=== PATIENT | female | born 1985 | race Caucasian/White ===

== ENCOUNTER → 2019-03-03 15:54 | Outpatient (CLI) | payer OTHER, SELFPAY ==
--- NOTE | 2019-03-03 | TONS_PTH ---
PATIENT: ERICA CONTRERAS LOC: [facility] U#:[id number] AGE/SX: 39/F ROOM: RE03/03/[address]: Dustin Amezquita MD : 1985 BED: DIS: SPEC #: [id number] RECD: 03/03/19 15:45 STATUS: SUSAN MAJO #: [id number] STEPHIE: 03/03/19 00:[address]: Dustin Amezquita DEPT: SURGICAL PATHOLOGY RECD BY: Katharine Cooley ENTERED: 03/06/19 11:17 SP TYPE: TONSILS OTHR DR: Out of Town Doctor Tissues: Tonsil, NOS Procedures: PAS Fungus (control) Special Stain Group I Surgery Specimen Level IV HEADER OPERATION: Excisional biopsy PRE-OP DIAGNOSIS: Right tonsil fossa, mucosal lesion (papilloma) TISSUE SUBMITTED: Right tonsil fossa, mucosal lesion MICROSCOPIC DIAGNOSIS Right tonsil fossa, biopsy: Polypoid benign lymphoid tissue. Focal mucosal ulceration with associated acute and chronic inflammation. Negative for fungal organisms. See comment. AM:alex 03/07/19 COMMENT PASF stain with matched control was used in the evaluation of this case. Immunohistochemistry ([id number]) supports the above diagnosis. Case has been reviewed in consultation with Dr. Osorio who concurs with the above diagnosis. IDC:[email or web address] MICROSCOPIC DESCRIPTION Slides are reviewed. GROSS DESCRIPTION Received in fixative is one container labeled with the patient's name and designated right tonsil. The specimen consists of a polypoid piece of cee mucosal tissue measuring 0.5 x 0.3 x 0.3 cm. The specimen is totally submitted in one cassette. / FRANCISCO:alex 03/06/19 TC:2 CPT: 79032, 95270
--- NOTE | 2019-03-03 | IMM_PTH ---
PATIENT: ERICA CONTRERAS LOC: [facility] U#:[id number] AGE/SX: 39/F ROOM: RE03/03/[address]: Dustin Amezquita MD : 1985 BED: DIS: SPEC #: [id number] RECD: 03/07/19 14:43 STATUS: SUSAN REQ #: [id number] STEPHIE: 03/03/19 00:[address]: Dustin Amezquita DEPT: IMMUNOHISTOCHEMISTRY RECD BY: Mary Perez ENTERED: 03/07/19 14:44 SP TYPE: IMMUNO OTHR DR: Out of Town Doctor Tissues: Tonsil, NOS Procedures: CD20 (add) CD3 (add) CD45 (add) CD5 (add) CD79A (add) Pankeratin (initial) Comments: @ Specimen number changed from [id number] to [id number] @ on 03/07/19 at 1509 by [facility]. PHYSICIAN & INSTITUTION [address] [address] SPECIMEN INFORMATION: Tissue Source: Right tonsil fossa Clinical Info: Right tonsil fossa mucosal lesion (papilloma) Specimen Number: [id number] CPT code: 34255, 97498 x5 METHODOLOGY: Deparaffinized sections of prefer/formalin-fixed tissue or PAP/DQ stained slides are incubated with monoclonal/polyclonal antibodies/oligonucleotide probes. Localization is made via biotin free immunoperoxidase method. Appropriate controls are performed and reacted as expected. Results on target cell population are indicated in the following table: RESULTS: ANTIBODY / CLONE RESULT AE1-3 (AE1/AE3/PCK26) negative CD3 (PS1) positive CD5 (SP10) positive CD20 (L26) positive CD45 (RP2/18) positive CD79a (11E3) positive These tests were developed and their performance characteristics determined by [facility]. They may not have been cleared or approved by the [place]. Food and Drug Administration. The FDA has determined that such clearance or approval is not necessary. The above immunohistochemical/dualISH markers are ordered and reviewed by the Pathologist. INTERPRETATION: Right tonsil fossa, excisional biopsy: Polytypic lymphoid population. AM:alex 03/08/19
== END ==
PROVIDERS: Referring Provider Otolaryngology Otolaryngology/Facial Plastic Surgery; Visit Provider Otolaryngology Otolaryngology/Facial Plastic Surgery
DX: L98.9 Disorder of the skin and subcutaneous tissue, unspecified (principal)
CPT/HCPCS: 88305; 88312; 88341; 88342